=== PATIENT | female | born 1985 | race Caucasian/White ===

== ENCOUNTER 2020-02-25 15:29 | Outpatient (REF) | payer OTHER, SELFPAY | END 2020-02-25 15:30 | disposition home or self-care (01) | LOC: HO.HAP 15:29 | PROVIDERS: Visit Provider Pediatrics | DX: Z46.1 Encounter for fitting and adjustment of hearing aid (principal) | CPT/HCPCS: 92700 ==

== ENCOUNTER 2020-05-11 12:26 | Outpatient (REF) | payer OTHER, SELFPAY | END 2020-05-11 12:27 | disposition home or self-care (01) | LOC: HO.HAP 12:26 | PROVIDERS: Visit Provider Pediatrics | DX: Z13.89 Encounter for screening for other disorder (principal) ==

== ENCOUNTER 2020-05-12 10:37 | Outpatient (REF) | payer OTHER, SELFPAY | END 2020-05-12 10:38 | disposition home or self-care (01) | LOC: HO.HAP 10:37 | PROVIDERS: Visit Provider Pediatrics | DX: Z13.89 Encounter for screening for other disorder (principal) ==

== ENCOUNTER 2020-05-20 15:15 | Outpatient (REF) | payer SELFPAY | END 2020-05-20 15:16 | disposition home or self-care (01) | LOC: HO.HAP 15:15 | PROVIDERS: Visit Provider Pediatrics | DX: Z13.89 Encounter for screening for other disorder (principal) ==

== ENCOUNTER 2020-07-09 08:26 | Outpatient (REF) | payer SELFPAY | END 2020-07-09 08:27 | disposition home or self-care (01) | LOC: HO.HAP 08:26 | PROVIDERS: Visit Provider Pediatrics | DX: Z13.89 Encounter for screening for other disorder (principal) ==

== ENCOUNTER 2020-09-08 09:57 | Outpatient (REF) | payer OTHER, SELFPAY ==
--- NOTE | 2020-09-08 10:29 | MHC.AU.P13 ---
Hearing Instrument Maintenance Date of Visit: 09/08/20 Right Ear: R[place] Hemmer Automatic: Phonak Model: Kim M70-SP Serial Number: [id number] Repair Warranty: 11/03/2022 Loss and Damage Warranty: 11/03/2022 Battery Size: 13 Color: Black Tubin T double Type of Mold: Microsonic canal mold Left Ear: Ruffling Hemmer Automatic: Phonak Model: Kim M70-SP Serial Number: [id number] RepairWarranty: 11/03/2022 Loss and Damage Warranty: 11/03/2022 Battery Size: 13 Color: Black TubinT double Type of Mold: Microsonic canal mold Follow-Up Summary: [place] [facility] - Hearing aids cleaned and tubings changed - both amplifying clearly. Recommendations: Recommendations: Hearing instrument follow-up or maintenance as needed. Signature: Provider: ISRA Sidhu-
== END 2020-09-08 09:58 | disposition home or self-care (01) ==
LOC: HO.HAP 09:57
PROVIDERS: Visit Provider Pediatrics
DX: Z13.89 Encounter for screening for other disorder (principal)

== ENCOUNTER 2021-03-08 12:19 | Outpatient (REF) | payer SELFPAY | END 2021-03-08 12:20 | disposition home or self-care (01) | LOC: HO.HAP 12:19 | PROVIDERS: Visit Provider Pediatrics | DX: Z13.89 Encounter for screening for other disorder (principal) ==

== ENCOUNTER 2021-05-10 12:47 | Outpatient (REF) | payer SELFPAY | END 2021-05-10 12:48 | disposition home or self-care (01) | LOC: HO.HAP 12:47 | PROVIDERS: Visit Provider Pediatrics | DX: Z13.89 Encounter for screening for other disorder (principal) ==

== ENCOUNTER 2021-07-29 12:42 | Outpatient (REF) | payer SELFPAY | END 2021-07-29 12:43 | disposition home or self-care (01) | LOC: HO.HAP 12:42 | PROVIDERS: Visit Provider Pediatrics | DX: Z13.89 Encounter for screening for other disorder (principal) ==

== ENCOUNTER 2021-09-30 13:43 | Outpatient (REF) | payer SELFPAY | END 2021-09-30 13:44 | disposition home or self-care (01) | LOC: HO.HAP 13:43 | PROVIDERS: Visit Provider Pediatrics | DX: Z13.89 Encounter for screening for other disorder (principal) ==

== ENCOUNTER 2021-11-16 08:37 | Outpatient (REF) | payer SELFPAY | END 2021-11-16 08:38 | disposition home or self-care (01) | LOC: HO.HAP 08:37 | PROVIDERS: Visit Provider Pediatrics | DX: Z46.1 Encounter for fitting and adjustment of hearing aid (principal); H90.3 Sensorineural hearing loss, bilateral | CPT/HCPCS: V5264 ==

== ENCOUNTER 2022-02-10 11:04 | Outpatient (REF) | payer SELFPAY | END 2022-02-10 11:05 | disposition home or self-care (01) | LOC: HO.HAP 11:04 | PROVIDERS: Visit Provider Pediatrics | DX: Z13.89 Encounter for screening for other disorder (principal) ==

== ENCOUNTER 2022-07-05 08:31 | Outpatient (REF) | payer SELFPAY ==
--- NOTE | 2022-07-05 09:01 | MHC.AU.HA3 ---
Hearing Instrument Follow-Up- Binaural Date of Visit: 07/05/22 Right Ear: Rikki, Model, Color, Serial Number: Arely Alvarez M70-SP SN: [id number] Color: [place] Internal Corrosion Specialist Repair Warranty: 11/03/2022 Internal Corrosion Specialist Loss and Damage Warranty: 11/03/2022 Battery Size: 13 Earmold/Dome/CShell/SlimTip: Microsonic canal mold Dispensed By: [facility] Date of Fittin08/26/2019 Left Ear: Rikki, Model, Color, Serial Number: Arely Alvarez M70-SP SN: [id number] Color: [place] Internal Corrosion Specialist Repair Warranty: 11/03/2022 Internal Corrosion Specialist Loss and Damage Warranty: 11/03/2022 Battery Size: 13 Earmold/Dome/CShell/SlimTip: Microsonic canal mold Dispensed By: [facility] Date of Fittin08/26/2019 Follow-Up Summary: Filomena returned for a routine tubing change. Cleaned hearing aids and earmolds. Vacuumed microphones. Replaced tubing. A listening check demonstrated that the hearing aids are in good working order. No charge as hearing aids are still under warranty and purchased via [facility] when pricing was bundled. However, advised Filomena that after warranty expires on 11/03/2022, there will be a fee for service. Quoted $50.00 for tubing changes. Filomena reported that she never had to pay before and services were always covered. Reexplained that services are only covered during the warranty period. Recommendations: Hearing instrument maintenance in 6 months, or sooner if needed. Please contact our clinic with any questions or concerns. Diagnosis Code(s): Primary Diagnosis: H90.3 Bilateral Sensorineural Hearing Loss Signature: Provider: Edi Chairez, [facility]
== END 2022-07-05 08:32 | disposition home or self-care (01) ==
LOC: HO.HAP 08:31
PROVIDERS: Visit Provider Pediatrics
DX: Z13.89 Encounter for screening for other disorder (principal)

== ENCOUNTER 2022-07-26 13:33 | Outpatient (REF) | payer SELFPAY ==
--- NOTE | 2022-07-27 09:51 | MHC.AU.HA3 ---
Hearing Instrument Follow-Up- Binaural Date of Visit: 07/26/22 Right Ear: Rikki, Model, Color, Serial Number: Arely Alvarez M70-SP SN: [id number] Color: [place] Code Enforcement Officer Repair Warranty: 11/03/2022 Code Enforcement Officer Loss and Damage Warranty: 11/03/2022 Battery Size: 13 Earmold/Dome/CShell/SlimTip:Microsonic canal mold Dispensed By: [facility] Date of Fittin08/26/2019 Left Ear: Rikki, Model, Color, Serial Number: Arely Alvarez M70-SP SN: [id number] Color: [place] Code Enforcement Officer Repair Warranty: 11/03/2022 Code Enforcement Officer Loss and Damage Warranty: 11/03/2022 Battery Size: 13 Earmold/Dome/CShell/SlimTip: Microsonic canal mold Dispensed By: [facility] Date of Fittin08/26/2019 Follow-Up Summary: Filomena reported that, when streaming music and videos from her phone, the audio is intermittent and skips. She reportedly does not use her cellphone for phone calls so she is unsure if it also occurs then. She previously tried unpairing and repairing hearing aids and rebooting her cell phone. Called [facility] for troubleshooting advice. Per rep, recommended making sure phone is in close vicinity to hearing aids (i.e., not in purse or different room), changing dominant bluetooth side via [employer] software, and/or changing adaptive bandwidth to fixed bandwidth. Filomena reported she did not want to try changing settings and hope that it works. She would prefer to have it fixed prior to her warranty expiring. Explained unsure if hearing aid issue or phone issue and cannot guarantee sending them for repair will fix the issue. Connected a pair of loaner hearing aids to her cell phone in office and Filomena was able to stream music without issues. Then reconnected her personal hearing aids and able to stream without issues. Filomena reported issue is intermittent so may happen again in future. However, she is leaving for vacation in a couple of weeks. She opted to keep her hearing aids as is for now. When she returns at the beginning of August, she would like her hearing aids sent out for senior animal trainer repair prior to the warranty expiring. She will need loaners at that time. Recommendations: Please contact our clinic with any questions or concerns. Patient will call if problems persist. Recommendations (Other): Filomena will call when she is ready to send her hearing aids out for repair. At that time, she will drop off her hearing aids and warehouse order picker loaners. Diagnosis Code(s): Primary Diagnosis: H90.3 Bilateral Sensorineural Hearing Loss Signature: Provider: Edi Chairez, [facility]
== END 2022-07-26 13:34 | disposition home or self-care (01) ==
LOC: HO.HAP 13:33
PROVIDERS: Visit Provider Pediatrics
DX: Z13.89 Encounter for screening for other disorder (principal)

== ENCOUNTER 2022-08-21 08:22 | Outpatient (REF) | payer OTHER, SELFPAY ==
--- NOTE | 2022-08-21 08:51 | MHC.AU.HFU ---
Hearing Instrument Follow-Up- Binaural Date of Visit: 08/21/22 Right Ear: Strike Plate Attacher: Phonak Kim M70-SP SN: [id number] Color: [place] Repair Warranty: 11/03/2022 Loss and Damage Warranty: 11/03/2022 Battery Size: 13 Color: [place] Brown Tubin T Type of Mold: Microsonic canal mold Dispensed By: [facility] Date of Fittin08/26/2019 Left Ear: Strike Plate Attacher: Phonak Kim M70-SP SN: [id number] Color: [place] Repair Warranty: 11/03/2022 Loss and Damage Warranty: 11/03/2022 Battery Size: 13 Color: [place] Brown Tubin T Type of Mold: Microsonic canal mold Dispensed By: [facility] Date of Fittin08/26/2019 Follow-Up Summary: As per 07/27/22 notes, both aids are being sent for repair under warranty due to the problem with connectivity. Patient was not happy about the loaner being the UP model as it is bigger, but there were no SP models available. Loaners re-set to factory settings, then patient's 07/27/22 settings transferred to the loaners and patient given extra batteries. Aids paired with cell phone and my View3 damien in office. Recommendations: Schedule appointment when repairs received. Need to discuss with patient if the bluetooth connectivity worked better with the loaners. Diagnosis Code(s):Primary Diagnosis: H90.3 Bilateral Sensorineural Hearing Loss Signature:Provider: Edi Yadav, [facility]
== END 2022-08-21 08:23 | disposition home or self-care (01) ==
LOC: HO.HAP 08:22
PROVIDERS: Visit Provider Pediatrics
DX: Z13.89 Encounter for screening for other disorder (principal)

== ENCOUNTER 2022-09-07 14:20 | Outpatient (REF) | payer SELFPAY | END 2022-09-07 14:21 | disposition home or self-care (01) | LOC: HO.HAP 14:20 | PROVIDERS: Visit Provider Pediatrics | DX: Z13.89 Encounter for screening for other disorder (principal) ==

== ENCOUNTER 2023-02-27 08:29 | Outpatient (REF) | payer SELFPAY ==
--- NOTE | 2023-02-27 09:42 | MHC.AU.HA3 ---
Hearing Instrument Follow-Up- Binaural Date of Visit: 02/27/23 Right Ear: Make, Model, Color, Serial Number: Arely Alvarez M70-SP SN: [id number] Color: [place] Senior Ui Ux Designer Repair Warranty: 11/03/2022 Senior Ui Ux Designer Loss and Damage Warranty: 11/03/2022 Battery Size: 13 Earmold/Dome/CShell/SlimTip:Microsonic canal mold Dispensed By: [facility] Date of Fittin08/26/2019 Left Ear: Make, Model, Color, Serial Number: Arely Alvarez M70-SP SN: [id number] Color: [place] Senior Ui Ux Designer Repair Warranty: 11/03/2022 Senior Ui Ux Designer Loss and Damage Warranty: 11/03/2022 Battery Size: 13 Earmold/Dome/CShell/SlimTip: Microsonic canal mold Dispensed By: [facility] Date of Fittin08/26/2019 Follow-Up Summary: Filomena reported she needs new ear molds as her current pair have become hard and discolored. Impressions taken, bilaterally, without incident [facility]a inquired about a different material due to hardness and discoloration. Currently has [id number]. Recommended softer silicone material (M35) for better acoustic seal; however, advised it will likely still discolor over time. Filomena opted for softer material in same canal style with pressure vent. Quoted $245.00. Will need to bill patient at next appointment as she would like to contact the billing department to set up a payment plan. Recommendations: Patient will be contacted when materials have arrived. Diagnosis Code(s): Primary Diagnosis: H90.3 Bilateral Sensorineural Hearing Loss Signature: Provider: Edi Chairez, [facility]
== END 2023-02-27 08:30 | disposition home or self-care (01) ==
LOC: HO.HAP 08:29
PROVIDERS: Visit Provider Pediatrics
DX: Z13.89 Encounter for screening for other disorder (principal)

== ENCOUNTER 2023-04-20 11:17 | Outpatient (REF) | payer SELFPAY ==
--- NOTE | 2023-04-20 11:58 | MHC.AU.HA3 ---
Hearing Instrument Follow-Up- Binaural Date of Visit: 04/20/23 Right Ear: Rikki, Model, Color, Serial Number: Arely Alvarez M70-SP SN: [id number] Color: [place] Rail Loader Repair Warranty: 11/03/2022 Rail Loader Loss and Damage Warranty: 11/03/2022 [facility] Service Plan: Battery Size: 13 Legger Press Operator/Slim Tube: Earmold/Dome/CShell/SlimTip:Microsonic canal mold Type of Wax Guard: Dispensed By: [facility] Date of Fittin08/26/2019 Left Ear: Rikki, Model, Color, Serial Number: Arely Alvarez M70-SP SN: [id number] Color: [place] Rail Loader Repair Warranty: 11/03/2022 Rail Loader Loss and Damage Warranty: 11/03/2022 [facility] Service Plan: Battery Size: 13 Legger Press Operator/Slim Tube: Earmold/Dome/CShell/SlimTip: Microsonic canal mold Type of Wax Guard: Dispensed By: [facility] Date of Fittin08/26/2019 Follow-Up Summary: Here for dispensing of new earmolds. Fit looked good but Filomena felt they are too small, preferred the size of her old ones that had material extending into the nilo bowl where she could grab onto for removal. Will order remake from [employer] and call when they arrive. Increased mids left ear for better speech clarity. Recommendations: Recommendations: Patient will be contacted when materials have arrived. Diagnosis Code(s): Primary Diagnosis: H90.3 Bilateral Sensorineural Hearing Loss Signature: Provider: Hipolito Leonard, [facility]
== END 2023-04-20 11:18 | disposition home or self-care (01) ==
LOC: HO.HAP 11:17
PROVIDERS: Visit Provider Pediatrics
DX: Z46.1 Encounter for fitting and adjustment of hearing aid (principal); H90.3 Sensorineural hearing loss, bilateral
CPT/HCPCS: V5264

== ENCOUNTER 2023-07-13 10:33 | Outpatient (REF) | payer SELFPAY ==
--- NOTE | 2023-07-13 12:15 | MHC.AU.HA3 ---
Hearing Instrument Follow-Up- Binaural Date of Visit: 07/13/23 Right Ear: Rikki, Model, Color, Serial Number: Arely Alvarez M70-SP SN: [id number] Color: [place] Tactical Intelligence Officer Repair Warranty: 11/03/2022 Tactical Intelligence Officer Loss and Damage Warranty: 11/03/2022 [facility] Service Plan: Battery Size: 13 Managing Partner Digital Content Marketing [place]/Slim Tube: Earmold/Dome/CShell/SlimTip:Microsonic canal mold Type of Wax Guard: Dispensed By: [facility] Date of Fittin08/26/2019 Left Ear: Rikki, Model, Color, Serial Number: Arely Alvarez M70-SP SN: [id number] Color: [place] Tactical Intelligence Officer Repair Warranty: 11/03/2022 Tactical Intelligence Officer Loss and Damage Warranty: 11/03/2022 [facility] Service Plan: Battery Size: 13 Managing Partner Digital Content [employer] [place]/Slim Tube: Earmold/Dome/CShell/SlimTip: Microsonic canal mold Type of Wax Guard: Dispensed By: [facility] Date of Fittin08/26/2019 Follow-Up Summary: Here to lease picker re-make earmolds. Found them to be too big. Daisy like they were sticking out of the nilo too much. Visually, the fit appeared appropriate. Offered her the other set of earmolds that had come from [employer] that had been set aside because didn't appear to be very different from the original molds that she had felt were too small. She found the middle set to be better than the newest pair. She isn't completely sure that she likes these though, and is going to take a week or two with them to see if she gets used to them. Stored the too big molds in the EM drawer just in case. Asked me to increase gain slightly in mids while she was here. Recommendations: Recommendations: Hearing instrument follow-up or maintenance as needed. Diagnosis Code(s): H90.3 Signature: Provider: Edi Rosales, [facility]
== END 2023-07-13 10:34 | disposition home or self-care (01) ==
LOC: HO.HAP 10:33
PROVIDERS: Visit Provider Pediatrics
DX: Z13.89 Encounter for screening for other disorder (principal)

== ENCOUNTER 2023-09-26 07:55 | Outpatient (REF) | payer SELFPAY | END 2023-09-26 07:56 | disposition home or self-care (01) | LOC: HO.HAP 07:55 | PROVIDERS: Visit Provider Pediatrics | DX: Z46.1 Encounter for fitting and adjustment of hearing aid (principal); H90.3 Sensorineural hearing loss, bilateral | CPT/HCPCS: 92593 ==

== ENCOUNTER 2024-01-14 09:02 | Outpatient (REF) | payer SELFPAY | END 2024-01-14 09:03 | disposition home or self-care (01) | LOC: HO.HAP 09:02 | PROVIDERS: Visit Provider Pediatrics | DX: Z46.1 Encounter for fitting and adjustment of hearing aid (principal) | CPT/HCPCS: 92592 ==